=== PATIENT | female | born 1975 | race Caucasian/White ===

== ENCOUNTER 2024-01-05 11:22 | Emergency (ER) | payer OTHER, SELFPAY ==
[2024-01-05] VITALS (11 sets, daily range): BP systolic 113–183; BP diastolic 79–99; BMI 24.0
--- NOTE | 2024-01-05 12:01 | EDRN ---
Dr. Segovia brought to the pts bedside due to this RN placing the pt on the monitor and noticing that the pt was in SVT in the 130's, the pt is hyperventilating and will not open her eyes, the pt answers some questions, the pt states that she is not
anxious, the pts is currently at the pts bedside and stated that 'this happens sometimes', the pt broke on her own and is currently now in NSR in the 90's
[2024-01-05 12:20] LABS: % Basophils 0.6 % (0-2); % Eosinophils 0.9 % (0-6); % Immature Granulocytes 0.1 % (0-0.5); % Lymphocytes 37.6 % (20.5-51.1); % Monocytes 8.9 % (1.7-9.3); % Neutrophils 51.9 % (42.2-75.2); Absolute Eosinophils 0.1 10^3/uL (0-0.7); Absolute Lymphocytes 2.7 10^3/uL (1.2-3.4); Absolute Monocytes 0.6 10^3/uL (0.1-0.6); Absolute Neutrophils 3.7 10^3/uL (1.4-6.5); Hematocrit 38.7 % (37.0-47.0); Hemoglobin 13.7 g/dL (12.0-16.0); Mean Corp Hgb Conc. 35.4 g/dL (33.0-37.0); Mean Corpuscular Hgb 31.8 pg (27.0-31.0); Mean Corpuscular Volume 89.8 fL (81.0-99.0); Mean Platelet Volume 9.4 fL (7.4-10.4); Nucleated Red Blood Cells % 0 %; Platelet Count 198 10^3/uL (130-400); Red Blood Cell Count 4.31 10^6/uL (4.20-5.40); Red Cell Dist. Width 12.2 % (11.5-14.5)
[2024-01-05 12:35] LABS: ALT (SGPT) 25 U/L (0-35); AST (SGOT) 28 U/L (14-36); Albumin 4.3 g/dl (3.5-5.0); Alkaline Phosphatase 64 U/L (38-126); Blood Urea Nitrogen 11 mg/dl (7-17); Calcium 9.6 mg/dl (8.4-10.2); Carbon Dioxide 17 mmol/L (22-30); Chloride 111 mmol/L (98-107); Estimated Creatinine Clearance 69 ml/min; Glucose 85 mg/dl (70-99); Potassium 3.1 mmol/L (3.5-5.1); Sodium 139 mmol/L (135-145); Total Bilirubin 0.5 mg/dl (0.2-1.3); Total Protein 7.3 g/dl (6.3-8.2); eGFR > 60.00
[2024-01-05 12:41] LABS: HCG, Urine Qualitative Screen Negative
[2024-01-05 12:43] LABS: Urine Albumin Negative (Neg - Trace); Urine Bilirubin Negative (Negative); Urine Character Clear (Clear); Urine Color Yellow; Urine Glucose Negative (Negative); Urine Ketone Negative (Negative); Urine Leukocyte Negative (Negative); Urine Nitrite Negative (Negative); Urine Occult Blood Negative (Negative); Urine Urobilinogen Negative (Neg - 1+)
[2024-01-05 12:45] LABS: Troponin I < 0.012 ng/ml
--- NOTE | 2024-01-05 12:53 | ED.GENMED ---
History of Present Illness
General
Chief Complaint: Abdominal Pain
Source: patient
Exam Limitations: none
Time Seen by Provider: 01/05/24 12:03
Nursing documentation reviewed up to this point in time: agreed with
Travel History
Have you had any contact with someone who has COVID-19?: No
Do you have any symptoms of coronavirus? Fever > 100 degrees, chills, cough, shortness of breath, sore throat, loss of taste or smell, muscle aches, or headache?: No
History of Present Illness
History of Present Illness:
48-year-old female with past medical history of endometriosis ovarian cyst frequent SVT with multiple ablations, hypertension presenting to the emergency department today with concerns of right pelvic discomfort over the past few days worsening
today. Denies vaginal bleeding discharge, does have nausea no vomiting no change in bowel movements
Past History
Past History
ED Past Medical History: Arrthythmia (History of SVT), HTN and Other (Patient has a history of migraines, irritable bowel, kidney stones, ovarian cysts, endometriosis, syncope)
ED Past Surgical History: Cardiac (SVT ablation 2006), Cholecystectomy, Gynecological (Laparoscopy for endometriosis, ovarian cyst removal), Orthopedic (Knee arthroscopy) and Other (Ovarian cyst removed, endometriosis surgery, sinus surgery,
bilateral knee surgery, SVT ablation)
Social History
Tobacco: Non-smoker
Alcohol: None
Personal:
Living: with family
Employment: Not employed (Homemaker)
Family History
Family History: Other (Noncontributory)
Review of Systems
Review of Systems
Allergies reviewed?: Yes
All Other Systems: ROS reviewed and negative except as documented in HPI and ROS
Phy Exam
Physical Exam
Physical Exam:
GENERAL: Alert , in no apparent distress
EYE: pupils equal and reactive
NECK: Supple, no significant adenopathy.
ENT: o/p clr, mmm.
CARDIAC: Regular rate and rhythm .
LUNGS: Clear breath sounds bilaterally, no acute respiratory distress, no wheezes/rales/rhonchi
ABDOMEN: Soft, without focal tenderness, no r/g, no cvat
NEUROLOGICAL: Alert and oriented, no focal neuro deficits
SKIN: Warm and dry, skin intact.
MUSCULOSKELETAL: No edema, well perfused.
PSYCH: Normal and appropriate interaction.
pelvic examination reveals right-sided adnexal tenderness
Course
Orders/Labs/Results
Orders:
Orders
01/05/24 11:58
EKG [Electrocardiogram (*1)] Urgent
Reason for Study: Bradycardia / Tachycardia
EKG- Treatment ONCE
01/05/24 12:02
Complete Blood Count/With Diff Urgent
Comprehensive Metabolic Panel Urgent
Troponin I Urgent
01/05/24 12:07
Test Result ONCE
01/05/24 12:09
HCG, Urine Qualitative Screen Urgent
Date Specimen was Collected: 01/05/24
Time Specimen was Collected: 12:07
Urinalysis Reflex To Culture Urgent
Date Specimen was Collected: 01/05/24
Time Specimen was Collected: 12:07
01/05/24 12:16
US Pelvis Only (non-obstetric) Urgent
Comment:
Reason For Exam: right asnexal pain
01/05/24 12:24
Ketorolac [Toradol] 15 mg IV NOW STA
01/05/24 13:37
US Abdomen - Appendix Only Urgent
Comment:
Reason For Exam: rlq pain
01/05/24 15:24
CT Abd/pel (oral only)-DH Only Urgent
Comment:
Reason For Exam: rlq pain
Iohexol [Omnipaque] See Protocol PO NOW STA
Morphine Sulfate 4 mg IV NOW STA
Ondansetron Injectable [Zofran] 4 mg IV NOW STA
01/05/24 16:56
Morphine Sulfate 4 mg IV NOW STA
Abnormal Lab Results
01/05/24
12:02
MCH 31.8 H pg
(27.0-31.0)
Potassium 3.1 L mmol/L
(3.5-5.1)
Chloride 111 H mmol/L
(98-107)
Carbon Dioxide 17 L mmol/L
(22-30)
01/05/24 12:02
01/05/24 12:02
Vital Signs
Initial and Last Documented VS:
Initial Vital Signs
Temp Pulse Resp BP Pulse Ox
98.0 F 93 20 183/99 99
01/05/24 11:24 01/05/24 11:24 01/05/24 11:24 01/05/24 11:24 01/05/24 11:24
Last Documented Vital Signs
Temp Pulse Resp BP Pulse Ox
98 F 95 19 144/91 97
01/05/24 14:31 01/05/24 19:30 01/05/24 19:30 01/05/24 19:30 01/05/24 14:31
MDM/Problems Addressed
MDM/Problems Addressed:
48-year-old female presenting to the emergency department today with concerns of right lower quadrant and pelvic discomfort to the right side worsening over the past few days. Does have a history of ovarian cyst. Tenderness is specifically
reproducible to the right adnexa but no masses no bleeding or discharge abdomen generally soft no specific sharp tenderness to palpation of the abdomen. Initial ultrasound was performed due to concerns of adnexal tenderness which was read as normal
urinalysis normal labs unremarkable troponin negative potassium was slightly low but certainly not explaining patient's symptoms. CT scan was then performed without emergent pathology as well. Patient comfortable through multiple hours in the ER
laughing and smiling during reassessment. For outpatient management unclear specific etiology advised for close outpatient follow-up. Return precautions given.
*Critical Care Note
Total Time (30-74mins, 75-104mins- exclusive of procedures): Not Applicable
ED Attending Note
-
Portions of this chart may have been created with voice recognition software.� Occasional wrong word or��sound alike� substitutions may have occurred due to the inherent limitations of voice recognition software.
Discharge Plan
Departure
Patient Disposition: Home (Routine Discharge)
Date of Disposition: 01/05/24
Time of Disposition: 19:50
Patient with high blood pressure during this ER visit?: No
Condition: Good
Covid-19: Not Applicable
Discharge Problem:
Groin pain
Instructions: Abdominal Pain
Prescriptions:
No Action
sumatriptan succinate 100 mg Tablet
100 mg PO PRN PRN (Reason: .migraine )
ibuprofen 200 mg Tablet
400 mg PO PRN PRN (Reason: headache)
topiramate 100 mg Tablet
200 mg PO BID
fluticasone propionate [Flonase] 50 mcg/actuation [place],Suspension
2 spray INTRANASAL PRN PRN (Reason: allergy)
Qulipta 60 mg Tablet
60 mg PO DAILY
Referrals:
Bety Garcia DO [Family Provider] -
Activity Restrictions/Additional Instructions:
You came to the emergency department today with concerns of lower abdominal discomfort. Here he had a reassuring evaluation with normal ultrasound and CT scan. Please follow up closely with your primary care doctor. Return to the emergency
department any worsening, new or concerning symptoms.
Interventions
Interventions:
*Risk Screen - Suicide Last Done: 01/05/24 11:24
*General Assessment Last Done: 01/05/24 11:24
*Neglect/Abuse Screening Last Done: 01/05/24 11:50
ED- Fall Risk Assessment Last Done: 01/05/24 11:50
*ED COVID-19 Vaccine History Last Done: 01/05/24 11:50
WS-Jgthyd-Caediinjjr Assessment Last Done: 01/05/24 11:59
[2024-01-05] MEDS: TORADOL 15 MG IV (13:07)
[2024-01-05] MEDS: ZOFRAN 4 MG IV (15:42)
[2024-01-05] MEDS: MORPHINE SULFATE 4 MG IV ×2 (15:42→16:59)
[2024-01-05] MEDS: OMNIPAQUE 50 ML PO (15:50)
== END 2024-01-05 20:30 | disposition home or self-care (01) ==
LOC: EMR 11:22
PROVIDERS: EMERGENCY PHYSICIAN Emergency Medicine; FAMILY PHYSICIAN Family Medicine
DX: R10.31 Right lower quadrant pain (principal); R10.2 Pelvic and perineal pain
CPT/HCPCS: 99285; 96374; 96375 ×2; 96376; 74176; 76705; 76856; 80053; 81003; 81025; 84484; 85025; 93005